=== PATIENT | male | born 1980 | race Caucasian/White ===

== ENCOUNTER 2017-02-26 07:45 | Inpatient (IN) | payer OTHER ==
[~2017-02-26] VITALS: Ht 170.2 cm; Wt 60.5 kg
[2017-02-26] MEDS ORDERED: FAMOTIDINE 20 MG/2 ML IVP ONE (08:00)
[2017-02-26] MEDS ORDERED: SODIUM CHLORIDE 0.9% 1,000ML IVBOLUS ONE ×2 (08:00→10:30)
[2017-02-26] MEDS ORDERED: SODIUM CHLORIDE FLUSH 10ML SYR IVF ONE (08:00)
[2017-02-26] MEDS ORDERED: MORPHINE SULFATE 4 MG/ML, 1ML IVPush PRN (08:00)
[2017-02-26] MEDS ORDERED: ONDANSETRON 2MG/ML, 2ML IVPush ONE (08:00)
[2017-02-26] MEDS ORDERED: ONDANSETRON 2MG/ML, 2ML ONE (08:05)
[2017-02-26] MEDS ORDERED: MORPHINE SULFATE 4 MG/ML, 1ML ONE (08:05)
[2017-02-26] MEDS ORDERED: METOCLOPRAMIDE 5 MG/ML, 2ML ONE (08:05)
[2017-02-26 08:21] LABS: HEMATOCRIT 44.6 % (39.2-51.8); HEMOGLOBIN 15.1 g/dL (13.7-18.0); WHITE BLOOD COUNT 14.5 x10^3/uL (3.4-10)
[2017-02-26] MEDS ORDERED: FAMOTIDINE 20 MG/2 ML ONE (08:25)
[2017-02-26] MEDS ORDERED: PLEASE ENTER ALLERGIES MC SCH ×2 (08:30)
[2017-02-26 08:33] LABS: ASPARTATE AMINO TRANSFERASE 13 U/L (15-37); BLOOD UREA NITROGEN 20 mg/dL (7-18)
[2017-02-26 09:47] LABS: IS PT STATUS REG ER OR PRE ER? YES
[2017-02-26 12:46] LABS: DAU SCREEN DISCLAIMER
[2017-02-26] MEDS ORDERED: SODIUM CHLORIDE FLUSH 10ML SYR IVF PRN (13:00)
[2017-02-26] MEDS ORDERED: ONDANSETRON 2MG/ML, 2ML IVPush PRN (13:30)
[2017-02-26] MEDS ORDERED: hydrALAzine 20 MG/ML, 1ML IVPush PRN (13:30)
[2017-02-26] MEDS ORDERED: ACETAMINOPHEN 325 MG TABLET PO PRN (13:30)
[2017-02-26] MEDS ORDERED: BISACODYL 10 MG SUPP PR PRN (13:30)
[2017-02-26] MEDS ORDERED: POLYETHYLENE GLYCOL 17 GM PACKET PO PRN (13:30)
[2017-02-26] MEDS ORDERED: ONDANSETRON ODT 4 MG PO PRN (13:30)
[2017-02-26] MEDS: SODIUM CHLORIDE 0.9% 1,000 ML IV SCH (14:30)
[2017-02-26 17:46] LABS: POTASSIUM,URINE RANDOM 190 mmol/L
[2017-02-26 19:23] VITALS: BP 103/53
[2017-02-26] MEDS: FAMOTIDINE 20 MG TABLET PO SCH (21:00)
[2017-02-27] MEDS: SODIUM CHLORIDE 0.9% 1,000 ML IV SCH ×2 (01:57→11:06)
[2017-02-27 02:00] VITALS: BP 111/65
[2017-02-27 05:06] LABS: HEMATOCRIT 37.4 % (39.2-51.8); HEMOGLOBIN 12.6 g/dL (13.7-18.0); WHITE BLOOD COUNT 10.6 x10^3/uL (3.4-10)
[2017-02-27 05:28] LABS: BLOOD UREA NITROGEN 14 mg/dL (7-18)
[2017-02-27 07:05] VITALS: BP 118/68
[2017-02-27] MEDS: FAMOTIDINE 20 MG TABLET PO SCH (09:00)
[2017-02-27] MEDS ORDERED: NICOTINE 21 MG/24 HR PATCH.TD24 TD ONE (11:30)
== END 2017-02-27 14:25 | disposition home or self-care (01) | DRG 923 ==
LOC: ED 08:58 → EDIP 12:51 → 4EST 14:29 → DCLOUNGE 02-27 14:05
PROVIDERS: ADMIT Hospitalist; ATTEND Hospitalist
DX: T68.XXXA Hypothermia, initial encounter (principal); D72.829 Elevated white blood cell count, unspecified; R10.11 Right upper quadrant pain; F17.210 Nicotine dependence, cigarettes, uncomplicated; X31.XXXA Exposure to excessive natural cold, initial encounter; Z59.0 Homelessness; Z82.49 Family history of ischemic heart disease and other diseases of the circulatory system
CPT/HCPCS: 36415; 71010; 76700; 80048; 80053; 80307; 81001; 82436; 82533; 83036; 83605; 83690; 84133; 84300; 84439; 84443; 84484; 85025; 85651; 87040; 87086; 93005; J2405; Q0162; G0479; J7030; S0028